=== PATIENT | female | born 1955 | race Caucasian/White ===

== ENCOUNTER → 2018-03-17 | Outpatient (CLI) | payer BC ==
[~2018-03-17] MED LIST: NO HOME MEDICATIONS
== END ==
LOC: ZCOL.LAB 14:40
DX: N61.1 Abscess of the breast and nipple (principal)

== ENCOUNTER → 2018-04-24 | Outpatient (CLI) | payer BC | LOC: MC.RAD 03-24 08:00 | DX: Z12.31 Encounter for screening mammogram for malignant neoplasm of breast (principal) ==

== ENCOUNTER → 2020-10-18 | Outpatient (CLI) | payer BC | LOC: MC.RAD 11:30 | DX: Z12.31 Encounter for screening mammogram for malignant neoplasm of breast (principal) ==